=== PATIENT | female | born 1965 | race Two or more races ===

== ENCOUNTER → 2020-11-06 | Outpatient (CLI) | payer OTHER ==
--- NOTE | 2020-11-06 14:13 | RAD ---
2 views of the left knee without comparison for left knee pain. FINDINGS: No fracture, dislocation, or acute osseous abnormality seen. Mild osteoarthritis of the med ial joint compartment is present. No suprapatellar joint effusion. IMPRESSION: 1. Mild medial compartment osteoarthritis with no acute osseous abnormality. Electronically signed by: Greg Simpson MD (11/06/2020 2:11 PM) [id number]
--- NOTE | 2020-11-06 14:16 | RAD ---
XR HAND 2 VIEWS History: Bilateral hand and wrist pain. Comparison: None. Technique: 2 views of the right hand and 2 views of left hand. Findings: Postsurgical changes of the left hand from plate and screw fusion of the thumb metacarpal phalangeal joint and trapeziectomy with retention devices at the base of the first and second metacarpals. No ev idence of hardware complication. There is no evidence for fracture. Alignment is normal. No destructive osseous lesions are seen. Mild degenerative changes of the right first CMC joint. Diffuse mild interphalangeal joint degenerati ve changes. Left radiocarpal joint narrowing and subchondral sclerosis. Soft tissues are normal. Impression: 1. Degenerative changes of the bilateral hands and left wrist. 2. Postsurgical changes from left thumb MCP fusion and trapeziectomy without complication. 3. No acute osseous abnormality. Electronically signed by: Edward Walker MD (11/06/2020 2:13 PM) [facility]
== END ==
LOC: RAD 09:43
PROVIDERS: ATTEND Surgery
DX: M17.12 Unilateral primary osteoarthritis, left knee (principal); M19.042 Primary osteoarthritis, left hand; M19.041 Primary osteoarthritis, right hand
CPT/HCPCS: 73560; 73120-50